=== PATIENT | male | born 2000 | race Caucasian/White ===

== ENCOUNTER → 2020-03-20 | Outpatient (CLI) | payer OTHER | LOC: M LABSMTC 11:47 | PROVIDERS: ATTEND Pediatrics | DX: Z20.822 Contact with and (suspected) exposure to COVID-19 (principal) ==

== ENCOUNTER → 2021-06-21 | Outpatient (REF) | payer OTHER ==
[2021-06-21 22:11] LABS: APPEARANCE, URINE HAZY (CLEAR); BACTERIA, URINE AUTO 2+ (NEGATIVE); BILIRUBIN, URINE AUTO NEGATIVE (NEGATIVE); BLOOD, URINE BLOOD 2+ (NEGATIVE); COLOR, URINE AMBER (YELLOW); GLUCOSE, URINE (UA) AUTO NEGATIVE (NEGATIVE); KETONE, URINE AUTO 1+ mg/dL (NEGATIVE); LEUKOCYTE ESTERASE, URINE AUTO 2+ (NEGATIVE); MUCUS, URINE LARGE (NEGATIVE); NITRITE, URINE AUTO NEGATIVE (NEGATIVE); PROTEIN, URINE AUTO NEGATIVE (NEGATIVE); RBC, URINE AUTO 3 /HPF (0-3); SPECIFIC GRAVITY URINE AUTO 1.015 (1.002-1.035); SQUAMOUS EPITHELIAL CELL UR AU 0 /HPF (0-6); UROBILINOGEN, URINE AUTO 0.2 mg/dL (0.0-2.0); WBC, URINE AUTO 32 /HPF (0-3)
[2021-06-21 23:22] LABS: GC DNA AMPLIFICATION NEGATIVE (NEGATIVE)
== END ==
LOC: M LAB REF 21:47
PROVIDERS: ATTEND Physician Assistant
DX: N39.0 Urinary tract infection, site not specified (principal); R50.9 Fever, unspecified

== ENCOUNTER 2021-09-27 09:05 | Emergency (ER) | payer OTHER ==
[~2021-09-27] VITALS: Ht 172.7 cm; Wt 62.3 kg
[2021-09-27] MEDS ORDERED: ISOVUE-370 76% 100ML VIAL As Ordered ONE (09:34)
[2021-09-27 10:54] VITALS: BP 127/73
== END 2021-09-27 11:05 | disposition home or self-care (01) ==
LOC: M ED 09:05
DX: S20.211A Contusion of right front wall of thorax, initial encounter (principal); T14.8XXA Other injury of unspecified body region, initial encounter; V09.00XA Pedestrian injured in nontraffic accident involving unspecified motor vehicles, initial encounter; Y92.89 Other specified places as the place of occurrence of the external cause; Y93.89 Activity, other specified; Z88.1 Allergy status to other antibiotic agents
CPT/HCPCS: 70450; 71260; 72125; 74177; 80047; 99284; Q9967

== ENCOUNTER 2021-10-04 13:36 | Emergency (ER) | payer OTHER ==
[~2021-10-04] VITALS: Ht 172.7 cm; Wt 62.2 kg
[2021-10-04 17:31] VITALS: BP 121/71
[2021-10-04] MEDS ORDERED: CYCL-707 PO (18:05)
== END 2021-10-04 18:15 | disposition home or self-care (01) ==
LOC: M ED 13:36
DX: S29.011A Strain of muscle and tendon of front wall of thorax, initial encounter (principal); Z88.1 Allergy status to other antibiotic agents

== ENCOUNTER → 2023-11-21 | Outpatient (REF) | payer BC ==
[~2023-11-21] MED LIST: CYCL-707 PO
[2023-11-21 18:03] LABS: THYROID STIMULATING HORMONE 1.318 uIU/ML (0.55-4.78)
[2023-11-21 23:56] LABS: CHOLESTEROL RISK RATIO 2.46 (<5); HDL CHOLESTEROL 49.4 MG/DL (>40); LDL CHOLESTEROL 64.4 MG/DL (<100); NON-HDL-C 72.6 MG/DL
== END ==
LOC: M LAB REF 16:35
PROVIDERS: ATTEND Pediatrics
DX: R63.5 Abnormal weight gain (principal); Z82.49 Family history of ischemic heart disease and other diseases of the circulatory system